=== PATIENT | female | born 1965 | race Caucasian/White ===

== ENCOUNTER → 2024-08-23 | Day surgery (SDC) | payer OTHER ==
[~2024-08-23] MED LIST: Gadobenate Dimeglumine 2 ML, Sodium Chloride 0.9% 250 ML 10 ML, Iopamidol 8 ML, Lidocai... FS SCH; Sodium Bicarbonate 2.5 MEQ/5 ML SDV ONE
== END ==
LOC: MRI 09:32
PROVIDERS: ATTEND Family Medicine Sports Medicine
PROC: BP09YZZ Plain Radiography of Left Shoulder using Other Contrast (ICD-10-PCS; principal; 2024-08-23)
DX: S83.241A Other tear of medial meniscus, current injury, right knee, initial encounter (principal); S43.432A Superior glenoid labrum lesion of left shoulder, initial encounter; V03.10XA Pedestrian on foot injured in collision with car, pick-up truck or van in traffic accident, initial encounter
CPT/HCPCS: 23350; 77002; A9577; J0171; J7050; Q9967